=== PATIENT | female | born 1945 | race Caucasian/White ===

== ENCOUNTER 2022-07-07 02:44 | Inpatient (IN) | payer OTHER ==
[~2022-07-07] VITALS: Ht 165.1 cm; Wt 77.1 kg
[2022-07-07 04:08] LABS: RED BLOOD COUNT 4.38 M/UL (4.00-5.10); WHITE BLOOD COUNT 7.8 K/UL (4.5-11.0)
[2022-07-07] MEDS ORDERED: LANTUS SOL100 UNIT/1 SQ (17:58)
[2022-07-07] MEDS ORDERED: GABAPENTIN300 MG PO (17:59)
[2022-07-07] MEDS ORDERED: METOPROLOL SUCC25 MG PO (17:59)
[2022-07-07] MEDS ORDERED: POTASSIUM CHLO10 ME1 PO (18:25)
[2022-07-07] MEDS ORDERED: CYANOCOBAL1000 MCG/1 INJ (18:25)
[2022-07-07] MEDS ORDERED: CRESTOR20 MG PO (18:26)
[2022-07-07] MEDS ORDERED: VENLAFAXINE HCL75 M1 PO (18:28)
[2022-07-07 22:27] LABS: CANDIDA ALBICANS Not Detected (Negative); CANDIDA KRUSEI Not Detected (Negative); CANDIDA TROPICALIS Not Detected (Negative); ESCHERICHIA COLI Not Detected (Negative); HAEMOPHILUS INFLUENZAE Not Detected (Negative); KLEBSIELLA OXYTOCA Not Detected (Negative); KLEBSIELLA PNEUMONIAE Not Detected (Negative); KPC-CARBAPENEM-RESISTANCE GENE Not Detected (Negative); PROTEUS Not Detected (Negative); PSEUDOMONAS AERUGINOSA Not Detected (Negative); SERRATIA MARCESANS Not Detected (Negative); STAPHYLOCOCCUS AUREUS Not Detected (Negative); STREP AGALACTIAE (GROUP B) Not Detected (Negative); STREP PYOGENES (GROUP A) Not Detected (Negative); STREPTOCOCCUS Not Detected (Negative); vanA/B (VANCOMYCIN RESIST GENE Not Detected (Negative)
--- NOTE | 2022-07-07 23:35 | NUR ---
LATE ENTRY FOR 07/07/2022 @ 22:15 - air sealing technician called this RN, stated to go to patient's room, her heart monitor is showing a vfib/vtach rhythm with a rate of 180's-190's. This RN assessed patient, respirations even and unlabored, no complaints of chest pain, confidential secretary on correctly. 07/07/2022 @ 22:20 - Powerhouse Mechanic Apprentice Beryl and resource nurse Mohsen come to assess the patient and the situation. 07/07/2022 @ 22:23 - CROWN BUFFER called, patient instructed to do vagal maneuver, patient heart rate decreases to 90's-107. MD Pablo arrives to floor, orders Lopressor 25mg po x1 dose now and BID, and Lovenox 1mg/kg SC x1 dose now and daily.
[2022-07-07 23:40] LABS: STAPHYLOCOCCUS DETECTED (Negative)
[2022-07-08 07:20] LABS: HEMOGLOBIN 13.2 gm/dl (12.3-15.3); RED BLOOD COUNT 4.14 M/UL (4.00-5.10); WHITE BLOOD COUNT 6.3 K/UL (4.5-11.0)
[2022-07-09 06:47] LABS: HEMOGLOBIN 13.6 gm/dl (12.3-15.3); RED BLOOD COUNT 4.27 M/UL (4.00-5.10); WHITE BLOOD COUNT 6.7 K/UL (4.5-11.0)
[2022-07-09] MEDS ORDERED: METOPROLOL SUCC25 MG PO (16:52)
[2022-07-09] MEDS ORDERED: VANCOMYCIN IV (16:58)
[2022-07-09] MEDS ORDERED: ROCEPHIN 1 GM AD1 GM IV (16:58)
[2022-07-09] MEDS ORDERED: ASPIRIN EC81 MG PO (16:58)
[2022-07-09] MEDS ORDERED: PROTONIX IV40 MG IVP (17:44)
== END 2022-07-09 19:38 | disposition short-term general hospital (02) | DRG 871 ==
LOC: ER1 02:44 → CDU 06:14 → MED SURG 4 06:14
PROVIDERS: Emergency Medicine; Internal Medicine; Nurse Practitioner; ADMIT Internal Medicine
PROC: 3E043XZ Introduction of Vasopressor into Central Vein, Percutaneous Approach (ICD-10-PCS; 2022-07-07)
PROC: 3E03329 Introduction of Other Anti-infective into Peripheral Vein, Percutaneous Approach (ICD-10-PCS; 2022-07-07)
PROC: B24BZZZ Ultrasonography of Heart with Aorta (ICD-10-PCS; principal; 2022-07-08)
DX: A41.51 Sepsis due to Escherichia coli [E. coli] (principal); G92.8 Other toxic encephalopathy; I21.4 Non-ST elevation (NSTEMI) myocardial infarction; U07.1 COVID-19; I50.21 Acute systolic (congestive) heart failure; N39.0 Urinary tract infection, site not specified; K62.5 Hemorrhage of anus and rectum; I47.2 Ventricular tachycardia; E87.1 Hypo-osmolality and hyponatremia; N17.9 Acute kidney failure, unspecified; B96.20 Unspecified Escherichia coli [E. coli] as the cause of diseases classified elsewhere; R65.20 Severe sepsis without septic shock; I11.0 Hypertensive heart disease with heart failure; A08.4 Viral intestinal infection, unspecified; E86.0 Dehydration; E87.6 Hypokalemia; I08.3 Combined rheumatic disorders of mitral, aortic and tricuspid valves; E11.649 Type 2 diabetes mellitus with hypoglycemia without coma; I48.0 Paroxysmal atrial fibrillation; N28.9 Disorder of kidney and ureter, unspecified; F03.90 Unspecified dementia, unspecified severity, without behavioral disturbance, psychotic disturbance, mood disturbance, and anxiety; Z79.01 Long term (current) use of anticoagulants; Z79.82 Long term (current) use of aspirin; Z79.4 Long term (current) use of insulin; Z86.73 Personal history of transient ischemic attack (TIA), and cerebral infarction without residual deficits; Z90.49 Acquired absence of other specified parts of digestive tract; Z88.0 Allergy status to penicillin
CPT/HCPCS: ECHO; 36415; 70450; 71045; 80053; 80061; 81001; 82272; 82550; 82553; 82803; 82962; 83036; 83605; 83735; 83880; 84100; 84132; 84439; 84443; 84484; 85025; 86140; 87040; 87077; 87086; 87150; 87186; 93005; 93306; 96374; 99285; C9113; J0696; J1650; J3370; J3475; J7070; U0002